=== PATIENT | male | born 2000 | race Caucasian/White ===

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

== ENCOUNTER 2021-01-16 22:53 | Emergency (ER) | payer OTHER ==
[2021-01-17] MEDS ORDERED: ZYRTEC10 MG PO (01:22)
[2021-01-17] MEDS ORDERED: AUGMENTIN 875-1 EACH PO (01:22)
[2021-01-17] MEDS ORDERED: PROAIR HFA8.5 GM INH (01:22)
== END 2021-01-17 01:26 | disposition home or self-care (01) ==
LOC: ER1 22:53
DX: J40 Bronchitis, not specified as acute or chronic (principal); H66.92 Otitis media, unspecified, left ear; Z20.822 Contact with and (suspected) exposure to COVID-19
CPT/HCPCS: 0240U; 71046; 93005; 99283

== ENCOUNTER → 2021-04-25 | Outpatient (CLI) | payer OTHER ==
[~2021-04-25] MED LIST: AUGMENTIN 875-1 EACH PO; PROAIR HFA8.5 GM INH; ZYRTEC10 MG PO
== END ==
LOC: EROP 11:59
DX: U07.1 COVID-19 (principal)
CPT/HCPCS: U0002